=== PATIENT | female | born 1970 | race Caucasian/White ===

== ENCOUNTER 2021-04-23 04:16 | Day surgery (SDC) | payer BC ==
[2021-04-18 16:26] VITALS: BMI 23.8
[2021-04-23 07:43] LABS: HEMATOCRIT 37.7 % (32.4-45.2); MCH 26.4 pg (25.7-33.7); MCHC 31.8 g/dl (32.0-36.0); MEAN CELL VOLUME 83.1 fl (80-96); MEAN PLT VOLUME 7.6 fl (7.5-11.1); PLATELET COUNT 334 10^3/uL (134-434); RBC 4.53 M/mm3 (3.60-5.2); RDW 18.4 % (11.6-15.6)
[2021-04-23 07:57] LABS: INR 0.88 (0.83-1.09); PROTHROMBIN TIME (PATIENT) 10.7 SEC (9.7-13.0)
[2021-04-23 08:00] LABS: ACTIVATED PTT 27.2 SECONDS (25.2-36.5)
[2021-04-23 08:03] LABS: CALCIUM 8.5 mg/dL (8.5-10.1)
[2021-04-23 08:04] LABS: BLOOD UREA NITROGEN 13.7 mg/dL (7-18)
[2021-04-23 08:08] LABS: CREATININE 0.6 mg/dL (0.55-1.3)
[2021-04-23] MEDS ORDERED: MIDAZOLAM HCL 2 MG/2 ML SINGLE DOSE VIAL ONE (08:49)
[2021-04-23] MEDS ORDERED: PROPOFOL 20 ML ONE ×2 (08:50→09:14)
[2021-04-23] MEDS ORDERED: KETAMINE HCL 200 MG/20 ML VIAL ONE (09:18)
[2021-04-23] MEDS ORDERED: ceFAZolin SODIUM 1 GM VIAL IVPB ONE (09:20)
[2021-04-23] MEDS ORDERED: KETOROLAC TROMETHAMINE 30 MG/1 ML VIAL ONE (09:47)
[2021-04-23] MEDS ORDERED: LIDOCAINE HCL/PF 2% SDV 5ML VIAL ONE (09:57)
[2021-04-23] MEDS ORDERED: DESFLURANE GAS 240 ML BOTTLE IH ONE (10:03)
[2021-04-23] MEDS ORDERED: SEVOFLURANE 250 ML BTL ONE (10:03)
[2021-04-23] MEDS ORDERED: oxyCODONE HCL 5 MG TABLET PO PRN ×2 (10:53→10:57)
[2021-04-23] MEDS ORDERED: IBUPROFEN 800 MG/8 ML IJ IVPB PRN (10:53)
[2021-04-23] MEDS ORDERED: ONDANSETRON 4 MG/2 ML VIAL IVPUSH PRN (10:53)
[2021-04-23] MEDS ORDERED: IBUPROFEN 600 MG TABLET (FP) PO PRN (10:53)
[2021-04-23] MEDS ORDERED: ACETAMINOPHEN 1000 MG/100 ML VIAL (NON FORMULARY) IVPB ONE (10:57)
[2021-04-23] MEDS ORDERED: LACTATED RINGERS SOLUTION 1,000 ML IV SCH (11:00)
[2021-04-23] MEDS ORDERED: ELECTROLYTE-148 SOLN 1,000 ML IV SCH (11:00)
[2021-04-23] MEDS ORDERED: oxyCODONE HCL 5 MG TABLET ONE (11:56)
[2021-04-23] MEDS ORDERED: oxyCODONE HCL 5 MG TABLET PO ONE (12:00)
[2021-04-23 17:41] VITALS: BP 130/80; PULSE 60; TEMP 98
== END 2021-04-23 14:30 | disposition home or self-care (01) ==
LOC: JASU-SURG 04:16
PROVIDERS: ATTEND Obstetrics & Gynecology
PROC: 0U5B8ZZ Destruction of Endometrium, Via Natural or Artificial Opening Endoscopic (ICD-10-PCS; principal; 2021-04-23 09:00)
DX: N92.1 Excessive and frequent menstruation with irregular cycle (principal)
CPT/HCPCS: 36415; 80048; 84703; 85027; 85610; 85730; 86850; 86900; 86901; 86922; 93005; 93010; 94760; J0131

== ENCOUNTER 2022-11-28 13:28 | Emergency (ER) | payer BC ==
[2022-11-28 13:41] VITALS: BP 155/98; PULSE 89; RESP 18; TEMP 98; BMI 27.3
[2022-11-28] MEDS ORDERED: FAMOTIDINE 20 MG/50 ML IVPB 20 MG/50 ML MG IVPB ONE ×2 (14:13→14:59)
[2022-11-28] MEDS ORDERED: SODIUM CHLORIDE 0.9% 500 ML INFUS.BAG IV ONE (14:13)
[2022-11-28] MEDS ORDERED: ONDANSETRON 4 MG/2 ML VIAL IVPUSH ONE (14:13)
[2022-11-28] MEDS ORDERED: ONDANSETRON 4 MG/2 ML VIAL ONE (14:59)
[2022-11-28 15:11] LABS: BASO % 0.3 % (0-2.0); EOS % 0.6 % (0-4.5); HEMATOCRIT 38.6 % (32.4-45.2); HEMOGLOBIN 13.1 GM/dL (10.7-15.3); LYMPH % 13.8 % (8-40); MCH 29.6 pg (25.7-33.7); MEAN CELL VOLUME 87.1 fl (80-96); MEAN PLT VOLUME 7.6 fl (7.5-11.1); MONO % 7.7 % (3.8-10.2); NEUT % 77.6 % (42.8-82.8); PLATELET COUNT 316 10^3/uL (134-434); RBC 4.44 M/mm3 (3.60-5.2); RDW 13.2 % (11.6-15.6); WHITE BLOOD COUNT 7.9 K/mm3 (4.0-10.0)
[2022-11-28] MEDS ORDERED: MAG HYDROX/AL HYDROX/SIMETH -MYLANTA- ORAL SUSPENSION PO ONE (15:49)
[2022-11-28] MEDS ORDERED: MAG HYDROX/AL HYDROX/SIMETH 30 ML UNIT-DOSE CUP ONE (16:03)
[2022-11-28 16:36] LABS: CHLORIDE 104 mmol/L (98-107); SODIUM 135 mmol/L (136-145)
[2022-11-28 16:43] LABS: ANION GAP 6 MMOL/L (8-16); CALCIUM 8.7 mg/dL (8.5-10.1); CO2 25 mmol/L (21-32); GLUCOSE,RANDOM 97 mg/dL (74-106)
[2022-11-28 16:44] LABS: ALBUMIN 4.1 g/dl (3.4-5.0); BLOOD UREA NITROGEN 11.6 mg/dL (7-18); LIPASE 121 U/L (73-393); MAGNESIUM 1.8 mg/dL (1.8-2.4)
[2022-11-28 16:46] LABS: CREATININE 0.5 mg/dL (0.55-1.3); SGPT/ALT 31 U/L (13-61)
[2022-11-28 16:47] LABS: SGOT/AST 26 U/L (15-37)
[2022-11-28 16:48] LABS: BILIRUBIN,TOTAL 0.6 mg/dL (0.2-1); TOT PROT 7.7 g/dl (6.4-8.2)
[2022-11-28 16:50] LABS: ALK PHOS 62 U/L (45-117)
== END 2022-11-28 17:15 | disposition home or self-care (01) ==
LOC: JER 13:28
PROC: 3E033GC Introduction of Other Therapeutic Substance into Peripheral Vein, Percutaneous Approach (ICD-10-PCS; principal; 2022-11-28)
PROC: 3E033GC Introduction of Other Therapeutic Substance into Peripheral Vein, Percutaneous Approach (ICD-10-PCS; 2022-11-28)
DX: R10.13 Epigastric pain (principal)
CPT/HCPCS: 0241U-QW; 36415; 80053; 83690; 83735; 84484; 85025; 93005; 93010; 99284-25

== ENCOUNTER 2023-02-12 04:12 | Day surgery (SDC) | payer BC ==
[2023-02-11 08:09] VITALS: BMI 26.9
[2023-02-12 08:00] VITALS: TEMP 98.8
[2023-02-12 14:24] VITALS: BP 109/73; PULSE 68; RESP 19
== END 2023-02-12 10:15 | disposition home or self-care (01) ==
LOC: JASU-ENDO 04:12
PROVIDERS: ATTEND Internal Medicine Gastroenterology
PROC: 0DB78ZX Excision of Stomach, Pylorus, Via Natural or Artificial Opening Endoscopic, Diagnostic (ICD-10-PCS; 2023-02-12)
PROC: 0DB68ZX Excision of Stomach, Via Natural or Artificial Opening Endoscopic, Diagnostic (ICD-10-PCS; 2023-02-12)
PROC: 0DB98ZX Excision of Duodenum, Via Natural or Artificial Opening Endoscopic, Diagnostic (ICD-10-PCS; principal; 2023-02-12 08:30)
DX: K31.7 Polyp of stomach and duodenum (principal); K29.50 Unspecified chronic gastritis without bleeding; I10 Essential (primary) hypertension
CPT/HCPCS: 81025; 88305-TC; 88342-TC

== ENCOUNTER 2023-03-19 04:07 | Day surgery (SDC) | payer BC ==
[2023-03-16 16:22] VITALS: BMI 26.9
[2023-03-19 11:26] VITALS: BP 106/85; PULSE 76; RESP 19; TEMP 98
== END 2023-03-19 11:35 | disposition home or self-care (01) ==
LOC: JASU-ENDO 04:07
PROVIDERS: ATTEND Internal Medicine Gastroenterology
PROC: 0DJD8ZZ Inspection of Lower Intestinal Tract, Via Natural or Artificial Opening Endoscopic (ICD-10-PCS; principal; 2023-03-19 11:15)
DX: Z12.11 Encounter for screening for malignant neoplasm of colon (principal); K57.30 Diverticulosis of large intestine without perforation or abscess without bleeding; K62.89 Other specified diseases of anus and rectum; K64.8 Other hemorrhoids; I10 Essential (primary) hypertension
CPT/HCPCS: 81025